=== PATIENT | female | born 1965 | race Caucasian/White ===

== ENCOUNTER 2016-05-02 17:52 | Outpatient (CLI) | payer BC, SELFPAY ==
[2016-05-02 20:35] LABS: ALT (SGPT) 10 U/L (0-55); AST (SGOT) 18 U/L (5-34); Alkaline Phosphatase 77 U/L (40-150); Anion Gap 15 mmol/L (10-20); BUN (Urea Nitrogen) 15 mg/dL (9.8-20.1); Bilirubin, Total 0.7 mg/dL (0.2-1.2); Calc. Creatinine Clearance 0 mL/min (70-130); Calcium 9.2 mg/dL (7.8-10.44); Carbon Dioxide 24 mmol/L (22-29); Chloride 106 mmol/L (98-107); Estimated GFR-MDRD 81; Globulin 2.7 g/dL (2.4-3.5); LDL Cholesterol, Calculated 129 mg/dL; Protein, Total 7.2 g/dL (6.0-8.3)
[2016-05-02 20:42] LABS: Hemoglobin A1c 4.6 % (4.0-6.0)
[2016-05-02 20:54] LABS: #Basophils 0.1 thou/uL (0.0-0.2); #Eosinphils 0.2 thou/uL (0.0-0.7); #Lymphocytes 1.4 thou/uL (1.20-3.40); #Monocytes 0.3 thou/uL (0.11-0.59); #Neutrophils 3.5 thou/uL (1.40-6.50); %Basophils 1.2 % (0.0-1.0); %Eosinophils 2.9 % (0.0-10.0); %Lymphocytes 25.8 % (21.0-51.0); %Monocytes 6.3 % (0.0-10.0); Hematocrit 46.1 % (36.0-47.0); Mean Platelet Volume 4.5 fL (7.4-10.4); White Blood Cell (WBC) Count 5.5 thou/uL (4.8-10.8)
== END 2016-05-02 17:53 | disposition home or self-care (01) ==
LOC: NAV SJFMSP 17:52
PROVIDERS: ATTEND Family Medicine
DX: Z00.00 Encounter for general adult medical examination without abnormal findings (principal)
CPT/HCPCS: 80053; 80061; 83036; 84439; 84443; 85025

== ENCOUNTER 2024-02-10 09:10 | Emergency (ER) | payer BC ==
[2024-02-10] MEDS ORDERED: Ipratropium/Albuterol 3 ML NEB ONE (09:32)
[2024-02-10] MEDS ORDERED: Ibuprofen 200 MG TAB ONE (09:37)
== END 2024-02-10 10:46 | disposition home or self-care (01) ==
LOC: NAV ERS 09:10
DX: J20.9 Acute bronchitis, unspecified (principal)
CPT/HCPCS: 71046; 87428; J7620